=== PATIENT | male | born 1955 | race Caucasian/White ===

== ENCOUNTER 2021-07-17 16:43 | Inpatient (IN) ==
[2021-07-17] MEDS ORDERED: Insulin DETEMIR 100 UNIT/ML per UNIT SUBQ SCH (23:19)
[2021-07-17] MEDS ORDERED: *HR* Dextrose 50 % in Water (Syg) 50 ML SYRINGE IVP PRN (23:24)
[2021-07-17] MEDS ORDERED: Dextrose Gel 15 GM/37.5 ML TUBE PO PRN ×2 (23:24)
[2021-07-17] MEDS ORDERED: D5% in Water 1,000 ML IVC PRN (23:24)
[2021-07-17] MEDS: Doxycycline 100 MG CAPSULE PO SCH (23:52)
[2021-07-17] MEDS: Nystatin POWDER 30 GM BOTTLE TP SCH (23:52)
[2021-07-17] MEDS: Lactulose Oral Soln 20 GM/30 ML UDC PO SCH (23:52)
[2021-07-17] MEDS: levETIRAcetam 250 MG TABLET PO SCH (23:53)
[2021-07-18] MEDS: *HR* HYDROcodone/Acet 5/325 mg TABLET PO PRN ×2 (00:50→08:59)
[2021-07-18 05:57] LABS: VBG HCO3 33 mEq/L (21-27); VBG PCO2 59 mmHg (41-51); VBG PH 7.36 pH Units (7.32-7.42); VBG PO2 25 mmHg (25-50)
[2021-07-18 06:07] LABS: Basophils % 0.3 %; Eosinophils # 0.2 K/mcL (0.0-0.6); Eosinophils % 2.8 %; Hematocrit 28.4 % (37.5-50.1); Immature Granulocytes % 0.5 % (0-4); Lymphocytes # 0.8 K/mcL (0.6-4.6); Lymphocytes % 8.8 %; Mean Corpuscular HGB Conc 31.7 g/dL (31.6-35.5); Mean Corpuscular Hemoglobin 32.3 pg (28.0-33.3); Mean Corpuscular Volume 101.8 fL (83.0-100.0); Mean Platelet Volume 11.2 fL (9.4-12.4); Monocytes # 0.7 K/mcL (0.0-1.3); Monocytes % 7.6 %; Neutrophils # 6.9 K/mcL (1.6-8.9); Platelet Count 112 K/mcL (140-400); Red Blood Count 2.79 M/mcL (4.19-5.50); Red Cell Distribution Width 16.1 % (11.5-14.5); White Blood Count 8.6 K/mcL (4.3-11.1)
[2021-07-18 06:28] LABS: BUN/Creatinine Ratio 17 (6-26); Blood Urea Nitrogen 19 mg/dL (8-23); Calcium 8.3 mg/dL (8.6-10.3); Carbon Dioxide 34 mEq/L (23-29); Chloride 99 mEq/L (98-107); Glucose 256 mg/dL (70-105); Osmolality,Calculated 295 (280-300); Potassium 3.9 mEq/L (3.5-5.1); Sodium 137 mEq/L (136-145); eGFR For African Americans > 60 (> 60); eGFR For Non-African Americans > 60 (> 60)
[2021-07-18] MEDS: Insulin LISPRO 300 UNITS/3 ML VIAL SUBQ SCH ×4 (08:54→20:51)
[2021-07-18] MEDS: Aspirin Enteric Coated 81 MG Tablet PO SCH (08:55)
[2021-07-18] MEDS: Nicotine 14 MG PATCH.TD24 TD SCH (08:55)
[2021-07-18] MEDS: Spironolactone 25 MG TABLET PO SCH (08:55)
[2021-07-18] MEDS: Doxycycline 100 MG CAPSULE PO SCH ×2 (08:55→20:50)
[2021-07-18] MEDS: Cyanocobalamin (B-12) 1,000 MCG TABLET PO SCH (08:56)
[2021-07-18] MEDS: Furosemide 40 MG TABLET PO SCH (08:56)
[2021-07-18] MEDS: levETIRAcetam 250 MG TABLET PO SCH ×2 (08:56→20:50)
[2021-07-18] MEDS: Lactulose Oral Soln 20 GM/30 ML UDC PO SCH ×3 (08:56→20:50)
[2021-07-18] MEDS: Venlafaxine XR (24 HR) 75 MG CAP.ER.24H PO SCH (08:56)
[2021-07-18] MEDS: Nystatin POWDER 30 GM BOTTLE TP SCH ×2 (08:56→20:51)
[2021-07-18] MEDS ORDERED: D5% in Water 1,000 ML IVC PRN (16:00)
[2021-07-18] MEDS ORDERED: Dextrose Gel 15 GM/37.5 ML TUBE PO PRN ×2 (16:00)
[2021-07-18] MEDS ORDERED: *HR* Dextrose 50 % in Water (Syg) 50 ML SYRINGE IVP PRN (16:00)
[2021-07-18] MEDS: Insulin DETEMIR 100 UNIT/ML X5UNITS SUBQ SCH (20:51)
[2021-07-18] MEDS ORDERED: Insulin LISPRO 300 UNITS/3 ML VIAL SUBQ SCH (21:00)
[2021-07-19 07:37] LABS: Basophils % 0.6 %; Eosinophils # 0.2 K/mcL (0.0-0.6); Eosinophils % 2.7 %; Hematocrit 29.4 % (37.5-50.1); Hemoglobin 9.5 g/dL (12.9-16.9); Immature Granulocytes % 0.5 % (0-4); Lymphocytes # 0.8 K/mcL (0.6-4.6); Lymphocytes % 12.3 %; Mean Corpuscular HGB Conc 32.3 g/dL (31.6-35.5); Mean Corpuscular Hemoglobin 32.2 pg (28.0-33.3); Mean Corpuscular Volume 99.7 fL (83.0-100.0); Mean Platelet Volume 11.7 fL (9.4-12.4); Monocytes # 0.9 K/mcL (0.0-1.3); Monocytes % 13.1 %; Neutrophils # 4.7 K/mcL (1.6-8.9); Platelet Count 115 K/mcL (140-400); Red Blood Count 2.95 M/mcL (4.19-5.50); Red Cell Distribution Width 16.6 % (11.5-14.5); Segmented Neutrophils % 70.8 %; White Blood Count 6.6 K/mcL (4.3-11.1)
[2021-07-19 07:51] LABS: INR 1.5; Prothrombin Time 17.1 Seconds (9.4-12.1)
[2021-07-19 08:02] LABS: Alanine Aminotransferase 9 Units/L (7-52); Albumin 2.6 g/dL (3.5-5.7); Albumin/Globulin Ratio 0.7 (1.1-2.2); Alkaline Phosphatase 147 Units/L (34-104); Aspartate Amino Transferase 27 Units/L (13-39); BUN/Creatinine Ratio 18 (6-26); Bilirubin,Total 2.4 mg/dL (0.3-1.0); Blood Urea Nitrogen 21 mg/dL (8-23); Calcium 8.3 mg/dL (8.6-10.3); Carbon Dioxide 32 mEq/L (23-29); Chloride 100 mEq/L (98-107); Globulin 3.8 g/dL (2.4-3.5); Glucose 174 mg/dL (70-105); Osmolality,Calculated 293 (280-300); Potassium 3.6 mEq/L (3.5-5.1); Sodium 138 mEq/L (136-145); Total Protein 6.4 g/dL (6.4-8.9); eGFR For African Americans > 60 (> 60); eGFR For Non-African Americans > 60 (> 60)
[2021-07-19] MEDS: *HR* HYDROcodone/Acet 5/325 mg TABLET PO PRN (09:30)
[2021-07-19] MEDS: Venlafaxine XR (24 HR) 75 MG CAP.ER.24H PO SCH (09:30)
[2021-07-19] MEDS: levETIRAcetam 250 MG TABLET PO SCH ×2 (09:30→21:03)
[2021-07-19] MEDS: Cyanocobalamin (B-12) 1,000 MCG TABLET PO SCH (09:31)
[2021-07-19] MEDS: Doxycycline 100 MG CAPSULE PO SCH ×2 (09:31→21:03)
[2021-07-19] MEDS: Aspirin Enteric Coated 81 MG Tablet PO SCH (09:31)
[2021-07-19] MEDS: Furosemide 40 MG TABLET PO SCH (09:31)
[2021-07-19] MEDS: Spironolactone 25 MG TABLET PO SCH (09:31)
[2021-07-19] MEDS: Nicotine 14 MG PATCH.TD24 TD SCH (09:32)
[2021-07-19] MEDS: Lactulose Oral Soln 20 GM/30 ML UDC PO SCH ×3 (09:32→21:03)
[2021-07-19] MEDS: Nystatin POWDER 30 GM BOTTLE TP SCH ×2 (09:32→21:16)
[2021-07-19] MEDS: Insulin LISPRO 300 UNITS/3 ML VIAL SUBQ SCH ×4 (09:36→21:18)
[2021-07-19] MEDS ORDERED: 0.9 % Sodium Chloride 250 ML IVC SCH (12:15)
[2021-07-19] MEDS: Insulin DETEMIR 100 UNIT/ML X5UNITS SUBQ SCH (21:18)
[2021-07-19] MEDS ORDERED: Ondansetron 4 MG/2 ML VIAL IVP PRN (22:29)
[2021-07-20] MEDS: Insulin LISPRO 300 UNITS/3 ML VIAL SUBQ SCH ×4 (09:05→20:35)
[2021-07-20] MEDS: Cyanocobalamin (B-12) 1,000 MCG TABLET PO SCH (10:18)
[2021-07-20] MEDS: Furosemide 40 MG TABLET PO SCH (10:18)
[2021-07-20] MEDS: Venlafaxine XR (24 HR) 75 MG CAP.ER.24H PO SCH (10:18)
[2021-07-20] MEDS: levETIRAcetam 250 MG TABLET PO SCH ×2 (10:18→20:31)
[2021-07-20] MEDS: Spironolactone 25 MG TABLET PO SCH (10:18)
[2021-07-20] MEDS: Aspirin Enteric Coated 81 MG Tablet PO SCH (10:18)
[2021-07-20] MEDS: Doxycycline 100 MG CAPSULE PO SCH ×2 (10:18→20:31)
[2021-07-20] MEDS: Lactulose Oral Soln 20 GM/30 ML UDC PO SCH ×3 (10:19→20:31)
[2021-07-20] MEDS: Nicotine 14 MG PATCH.TD24 TD SCH (10:19)
[2021-07-20] MEDS: Nystatin POWDER 30 GM BOTTLE TP SCH ×2 (11:44→20:37)
[2021-07-20] MEDS: Insulin DETEMIR 100 UNIT/ML X5UNITS SUBQ SCH (20:42)
[2021-07-21] MEDS: *HR* HYDROcodone/Acet 5/325 mg TABLET PO PRN ×2 (01:42→15:17)
[2021-07-21] MEDS: Insulin LISPRO 300 UNITS/3 ML VIAL SUBQ SCH ×4 (07:33→20:59)
[2021-07-21] MEDS: Lactulose Oral Soln 20 GM/30 ML UDC PO SCH ×3 (07:34→20:59)
[2021-07-21] MEDS: Aspirin Enteric Coated 81 MG Tablet PO SCH (07:34)
[2021-07-21] MEDS: Doxycycline 100 MG CAPSULE PO SCH ×2 (07:34→20:58)
[2021-07-21] MEDS: Furosemide 40 MG TABLET PO SCH (07:34)
[2021-07-21] MEDS: Venlafaxine XR (24 HR) 75 MG CAP.ER.24H PO SCH (07:34)
[2021-07-21] MEDS: Spironolactone 25 MG TABLET PO SCH (07:34)
[2021-07-21] MEDS: Nicotine 14 MG PATCH.TD24 TD SCH (07:34)
[2021-07-21] MEDS: Cyanocobalamin (B-12) 1,000 MCG TABLET PO SCH (07:34)
[2021-07-21] MEDS: levETIRAcetam 250 MG TABLET PO SCH ×2 (07:34→20:58)
[2021-07-21] MEDS: Nystatin POWDER 30 GM BOTTLE TP SCH ×2 (07:35→21:11)
[2021-07-21] MEDS: *HR* LORazepam 0.5 MG TABLET PO PRN (20:59)
[2021-07-21] MEDS: Insulin DETEMIR 100 UNIT/ML X5UNITS SUBQ SCH (21:01)
[2021-07-22] MEDS: levETIRAcetam 250 MG TABLET PO SCH ×2 (08:57→21:56)
[2021-07-22] MEDS: Doxycycline 100 MG CAPSULE PO SCH ×2 (08:57→21:56)
[2021-07-22] MEDS: Lactulose Oral Soln 20 GM/30 ML UDC PO SCH ×3 (08:57→21:56)
[2021-07-22] MEDS: Cyanocobalamin (B-12) 1,000 MCG TABLET PO SCH (08:58)
[2021-07-22] MEDS: Spironolactone 25 MG TABLET PO SCH (08:58)
[2021-07-22] MEDS: Nicotine 14 MG PATCH.TD24 TD SCH (08:58)
[2021-07-22] MEDS: Venlafaxine XR (24 HR) 75 MG CAP.ER.24H PO SCH (08:58)
[2021-07-22] MEDS: Furosemide 40 MG TABLET PO SCH (08:58)
[2021-07-22] MEDS: Aspirin Enteric Coated 81 MG Tablet PO SCH (08:58)
[2021-07-22] MEDS: Nystatin POWDER 30 GM BOTTLE TP SCH ×2 (08:59→21:57)
[2021-07-22] MEDS: Insulin LISPRO 300 UNITS/3 ML VIAL SUBQ SCH ×4 (08:59→21:53)
[2021-07-22] MEDS: *HR* HYDROcodone/Acet 5/325 mg TABLET PO PRN (17:20)
[2021-07-22] MEDS: Insulin DETEMIR 100 UNIT/ML X5UNITS SUBQ SCH (21:57)
[2021-07-23] MEDS: Insulin LISPRO 300 UNITS/3 ML VIAL SUBQ SCH ×4 (08:21→20:51)
[2021-07-23] MEDS: Nicotine 14 MG PATCH.TD24 TD SCH (09:18)
[2021-07-23] MEDS: Nystatin POWDER 30 GM BOTTLE TP SCH ×2 (10:01→20:53)
[2021-07-23] MEDS: *HR* LORazepam 0.5 MG TABLET PO PRN (10:11)
[2021-07-23] MEDS: Venlafaxine XR (24 HR) 75 MG CAP.ER.24H PO SCH (10:11)
[2021-07-23] MEDS: Doxycycline 100 MG CAPSULE PO SCH ×2 (10:11→20:50)
[2021-07-23] MEDS: Lactulose Oral Soln 20 GM/30 ML UDC PO SCH ×3 (10:11→20:51)
[2021-07-23] MEDS: *HR* HYDROcodone/Acet 5/325 mg TABLET PO PRN (10:12)
[2021-07-23] MEDS: Cyanocobalamin (B-12) 1,000 MCG TABLET PO SCH (10:12)
[2021-07-23] MEDS: Aspirin Enteric Coated 81 MG Tablet PO SCH (10:12)
[2021-07-23] MEDS: Spironolactone 25 MG TABLET PO SCH (10:12)
[2021-07-23] MEDS: Furosemide 40 MG TABLET PO SCH (10:13)
[2021-07-23] MEDS: levETIRAcetam 250 MG TABLET PO SCH ×2 (10:13→20:50)
[2021-07-23] MEDS: Insulin DETEMIR 100 UNIT/ML X5UNITS SUBQ SCH (21:04)
[2021-07-24] MEDS: *HR* HYDROcodone/Acet 5/325 mg TABLET PO PRN ×2 (00:47→09:07)
[2021-07-24 07:38] LABS: Hematocrit 27.2 % (37.5-50.1); Mean Corpuscular HGB Conc 33.1 g/dL (31.6-35.5); Mean Corpuscular Hemoglobin 33.1 pg (28.0-33.3); Mean Platelet Volume 12.1 fL (9.4-12.4); Platelet Count 130 K/mcL (140-400); Red Blood Count 2.72 M/mcL (4.19-5.50); Red Cell Distribution Width 17.5 % (11.5-14.5); White Blood Count 6.3 K/mcL (4.3-11.1)
[2021-07-24 07:54] LABS: Alanine Aminotransferase 11 Units/L (7-52); Albumin 2.3 g/dL (3.5-5.7); Albumin/Globulin Ratio 0.5 (1.1-2.2); Alkaline Phosphatase 197 Units/L (34-104); Aspartate Amino Transferase 32 Units/L (13-39); BUN/Creatinine Ratio 16 (6-26); Bilirubin,Total 2.2 mg/dL (0.3-1.0); Blood Urea Nitrogen 19 mg/dL (8-23); Calcium 8.2 mg/dL (8.6-10.3); Carbon Dioxide 32 mEq/L (23-29); Chloride 101 mEq/L (98-107); Globulin 4.5 g/dL (2.4-3.5); Glucose 130 mg/dL (70-105); Osmolality,Calculated 288 (280-300); Potassium 4.1 mEq/L (3.5-5.1); Sodium 137 mEq/L (136-145); Total Protein 6.8 g/dL (6.4-8.9); eGFR For African Americans > 60 (> 60); eGFR For Non-African Americans > 60 (> 60)
[2021-07-24] MEDS: Insulin LISPRO 300 UNITS/3 ML VIAL SUBQ SCH ×4 (08:34→21:14)
[2021-07-24] MEDS: Lactulose Oral Soln 20 GM/30 ML UDC PO SCH ×3 (09:06→21:10)
[2021-07-24] MEDS: Cyanocobalamin (B-12) 1,000 MCG TABLET PO SCH (09:06)
[2021-07-24] MEDS: Spironolactone 25 MG TABLET PO SCH (09:06)
[2021-07-24] MEDS: levETIRAcetam 250 MG TABLET PO SCH ×2 (09:06→21:10)
[2021-07-24] MEDS: *HR* LORazepam 0.5 MG TABLET PO PRN (09:07)
[2021-07-24] MEDS: Furosemide 40 MG TABLET PO SCH (09:07)
[2021-07-24] MEDS: Venlafaxine XR (24 HR) 75 MG CAP.ER.24H PO SCH (09:07)
[2021-07-24] MEDS: Aspirin Enteric Coated 81 MG Tablet PO SCH (09:07)
[2021-07-24] MEDS: Nystatin POWDER 30 GM BOTTLE TP SCH ×2 (09:45→21:16)
[2021-07-24] MEDS: Insulin DETEMIR 100 UNIT/ML X5UNITS SUBQ SCH (21:28)
[2021-07-25] MEDS: Venlafaxine XR (24 HR) 75 MG CAP.ER.24H PO SCH (09:13)
[2021-07-25] MEDS: Cyanocobalamin (B-12) 1,000 MCG TABLET PO SCH (09:13)
[2021-07-25] MEDS: levETIRAcetam 250 MG TABLET PO SCH ×2 (09:13→20:41)
[2021-07-25] MEDS: Spironolactone 25 MG TABLET PO SCH (09:13)
[2021-07-25] MEDS: Aspirin Enteric Coated 81 MG Tablet PO SCH (09:14)
[2021-07-25] MEDS: Lactulose Oral Soln 20 GM/30 ML UDC PO SCH ×3 (09:14→20:41)
[2021-07-25] MEDS: Furosemide 40 MG TABLET PO SCH (09:14)
[2021-07-25] MEDS: Nystatin POWDER 30 GM BOTTLE TP SCH ×2 (09:16→20:52)
[2021-07-25] MEDS: Insulin LISPRO 300 UNITS/3 ML VIAL SUBQ SCH ×4 (09:16→20:49)
[2021-07-25 10:00] LABS: BUN/Creatinine Ratio 17 (6-26); Blood Urea Nitrogen 18 mg/dL (8-23); Calcium 8.6 mg/dL (8.6-10.3); Carbon Dioxide 31 mEq/L (23-29); Chloride 102 mEq/L (98-107); Glucose 99 mg/dL (70-105); Osmolality,Calculated 288 (280-300); Sodium 138 mEq/L (136-145); eGFR For African Americans > 60 (> 60); eGFR For Non-African Americans > 60 (> 60)
[2021-07-25] MEDS: Insulin DETEMIR 100 UNIT/ML X5UNITS SUBQ SCH (20:41)
[2021-07-25] MEDS: *HR* LORazepam 0.5 MG TABLET PO PRN (23:32)
[2021-07-26] MEDS: *HR* HYDROcodone/Acet 5/325 mg TABLET PO PRN (02:21)
[2021-07-26 09:23] LABS: Basophils # 0.1 K/mcL (0.0-0.2); Basophils % 0.7 %; Eosinophils # 0.1 K/mcL (0.0-0.6); Eosinophils % 1.7 %; Hematocrit 31.3 % (37.5-50.1); Hemoglobin 9.9 g/dL (12.9-16.9); Immature Granulocytes % 0.5 % (0-4); Lymphocytes # 1.1 K/mcL (0.6-4.6); Lymphocytes % 14.5 %; Mean Corpuscular HGB Conc 31.6 g/dL (31.6-35.5); Mean Corpuscular Hemoglobin 32.9 pg (28.0-33.3); Mean Platelet Volume 12.3 fL (9.4-12.4); Monocytes # 0.8 K/mcL (0.0-1.3); Monocytes % 10.5 %; Neutrophils # 5.4 K/mcL (1.6-8.9); Red Blood Count 3.01 M/mcL (4.19-5.50); Red Cell Distribution Width 17.2 % (11.5-14.5); Segmented Neutrophils % 72.1 %; White Blood Count 7.5 K/mcL (4.3-11.1)
[2021-07-26 09:24] LABS: Platelet Count 97 K/mcL (140-400)
[2021-07-26 09:32] LABS: BUN/Creatinine Ratio 15 (6-26); Blood Urea Nitrogen 19 mg/dL (8-23); Calcium 8.5 mg/dL (8.6-10.3); Carbon Dioxide 25 mEq/L (23-29); Chloride 101 mEq/L (98-107); Glucose 179 mg/dL (70-105); Osmolality,Calculated 285 (280-300); Sodium 134 mEq/L (136-145); eGFR For African Americans > 60 (> 60); eGFR For Non-African Americans 58 (> 60)
[2021-07-26] MEDS: Venlafaxine XR (24 HR) 75 MG CAP.ER.24H PO SCH ×2 (11:51→14:54)
[2021-07-26] MEDS: levETIRAcetam 250 MG TABLET PO SCH ×3 (11:52→21:14)
[2021-07-26] MEDS: Spironolactone 25 MG TABLET PO SCH ×2 (11:52→14:54)
[2021-07-26] MEDS: Furosemide 40 MG TABLET PO SCH ×2 (11:52→15:13)
[2021-07-26] MEDS: Aspirin Enteric Coated 81 MG Tablet PO SCH ×2 (11:52→14:54)
[2021-07-26] MEDS: Lactulose Oral Soln 20 GM/30 ML UDC PO SCH ×5 (11:54→21:14)
[2021-07-26] MEDS: Nystatin POWDER 30 GM BOTTLE TP SCH ×3 (11:54→21:14)
[2021-07-26] MEDS: Cyanocobalamin (B-12) 1,000 MCG TABLET PO SCH (12:01)
[2021-07-26] MEDS: Insulin LISPRO 300 UNITS/3 ML VIAL SUBQ SCH ×5 (12:02→21:14)
[2021-07-26] MEDS: *HR* LORazepam 0.5 MG TABLET PO PRN (20:43)
[2021-07-26] MEDS: Insulin DETEMIR 100 UNIT/ML X5UNITS SUBQ SCH (21:14)
[2021-07-27] MEDS: Lactulose Oral Soln 20 GM/30 ML UDC PO SCH ×4 (07:39→17:39)
[2021-07-27] MEDS: Spironolactone 25 MG TABLET PO SCH (07:40)
[2021-07-27] MEDS: Aspirin Enteric Coated 81 MG Tablet PO SCH (07:41)
[2021-07-27] MEDS: Venlafaxine XR (24 HR) 75 MG CAP.ER.24H PO SCH (07:42)
[2021-07-27] MEDS: Cyanocobalamin (B-12) 1,000 MCG TABLET PO SCH (07:42)
[2021-07-27] MEDS: levETIRAcetam 250 MG TABLET PO SCH ×2 (07:43→20:47)
[2021-07-27] MEDS: Furosemide 40 MG TABLET PO SCH (07:44)
[2021-07-27] MEDS: Nystatin POWDER 30 GM BOTTLE TP SCH ×2 (07:45→20:48)
[2021-07-27] MEDS: Insulin LISPRO 300 UNITS/3 ML VIAL SUBQ SCH ×4 (07:50→20:58)
[2021-07-27 07:57] LABS: BUN/Creatinine Ratio 16 (6-26); Blood Urea Nitrogen 17 mg/dL (8-23); Calcium 8.1 mg/dL (8.6-10.3); Carbon Dioxide 28 mEq/L (23-29); Chloride 102 mEq/L (98-107); Glucose 167 mg/dL (70-105); Osmolality,Calculated 289 (280-300); Sodium 137 mEq/L (136-145); eGFR For African Americans > 60 (> 60); eGFR For Non-African Americans > 60 (> 60)
[2021-07-27] MEDS: *HR* HYDROcodone/Acet 5/325 mg TABLET PO PRN ×2 (14:08→20:47)
[2021-07-27] MEDS: *HR* LORazepam 0.5 MG TABLET PO PRN (20:46)
[2021-07-27] MEDS: Insulin DETEMIR 100 UNIT/ML X5UNITS SUBQ SCH (20:54)
[2021-07-28] MEDS: Lactulose Oral Soln 20 GM/30 ML UDC PO SCH ×4 (02:28→16:33)
[2021-07-28] MEDS: *HR* HYDROcodone/Acet 5/325 mg TABLET PO PRN ×2 (04:34→21:06)
[2021-07-28] MEDS: *HR* LORazepam 0.5 MG TABLET PO PRN (04:35)
[2021-07-28] MEDS: Cyanocobalamin (B-12) 1,000 MCG TABLET PO SCH (08:34)
[2021-07-28] MEDS: Aspirin Enteric Coated 81 MG Tablet PO SCH (08:34)
[2021-07-28] MEDS: Spironolactone 25 MG TABLET PO SCH (08:34)
[2021-07-28] MEDS: Furosemide 40 MG TABLET PO SCH (08:34)
[2021-07-28] MEDS: Venlafaxine XR (24 HR) 75 MG CAP.ER.24H PO SCH (08:34)
[2021-07-28] MEDS: Insulin LISPRO 300 UNITS/3 ML VIAL SUBQ SCH ×4 (08:36→21:01)
[2021-07-28] MEDS: Nystatin POWDER 30 GM BOTTLE TP SCH ×2 (08:38→21:05)
[2021-07-28] MEDS: levETIRAcetam 250 MG TABLET PO SCH ×2 (08:45→21:04)
[2021-07-28] MEDS: Insulin DETEMIR 100 UNIT/ML X5UNITS SUBQ SCH (21:04)
[2021-07-29] MEDS: Lactulose Oral Soln 20 GM/30 ML UDC PO SCH ×5 (02:50→23:01)
[2021-07-29] MEDS: Insulin LISPRO 300 UNITS/3 ML VIAL SUBQ SCH ×4 (07:54→20:09)
[2021-07-29] MEDS: Spironolactone 25 MG TABLET PO SCH (08:40)
[2021-07-29] MEDS: Aspirin Enteric Coated 81 MG Tablet PO SCH (08:40)
[2021-07-29] MEDS: Furosemide 40 MG TABLET PO SCH (08:40)
[2021-07-29] MEDS: levETIRAcetam 250 MG TABLET PO SCH ×2 (08:40→20:09)
[2021-07-29] MEDS: Venlafaxine XR (24 HR) 75 MG CAP.ER.24H PO SCH (08:41)
[2021-07-29] MEDS: Cyanocobalamin (B-12) 1,000 MCG TABLET PO SCH (08:41)
[2021-07-29] MEDS: Nystatin POWDER 30 GM BOTTLE TP SCH ×2 (08:44→20:10)
[2021-07-29 12:47] LABS: Basophils # 0.1 K/mcL (0.0-0.2); Basophils % 0.7 %; Eosinophils # 0.1 K/mcL (0.0-0.6); Eosinophils % 1.8 %; Immature Granulocytes % 0.3 % (0-4); Lymphocytes # 0.8 K/mcL (0.6-4.6); Lymphocytes % 10.9 %; Mean Corpuscular HGB Conc 32.3 g/dL (31.6-35.5); Mean Corpuscular Hemoglobin 33.1 pg (28.0-33.3); Mean Corpuscular Volume 102.6 fL (83.0-100.0); Mean Platelet Volume 12.4 fL (9.4-12.4); Monocytes # 0.8 K/mcL (0.0-1.3); Monocytes % 10.8 %; Neutrophils # 5.8 K/mcL (1.6-8.9); Platelet Count 130 K/mcL (140-400); Red Blood Count 3.02 M/mcL (4.19-5.50); Red Cell Distribution Width 16.7 % (11.5-14.5); Segmented Neutrophils % 75.5 %; White Blood Count 7.6 K/mcL (4.3-11.1)
[2021-07-29 12:59] LABS: BUN/Creatinine Ratio 13 (6-26); Blood Urea Nitrogen 15 mg/dL (8-23); Calcium 8.1 mg/dL (8.6-10.3); Carbon Dioxide 31 mEq/L (23-29); Chloride 104 mEq/L (98-107); Glucose 206 mg/dL (70-105); Osmolality,Calculated 299 (280-300); Potassium 3.9 mEq/L (3.5-5.1); Sodium 141 mEq/L (136-145); eGFR For African Americans > 60 (> 60); eGFR For Non-African Americans > 60 (> 60)
[2021-07-29] MEDS: *HR* HYDROcodone/Acet 5/325 mg TABLET PO PRN ×2 (14:31→23:55)
[2021-07-29] MEDS: Insulin DETEMIR 100 UNIT/ML X5UNITS SUBQ SCH (20:09)
[2021-07-29] MEDS: *HR* LORazepam 0.5 MG TABLET PO PRN (23:55)
[2021-07-30] MEDS: Lactulose Oral Soln 20 GM/30 ML UDC PO SCH ×3 (05:13→20:36)
[2021-07-30] MEDS: *HR* HYDROcodone/Acet 5/325 mg TABLET PO PRN (06:09)
[2021-07-30] MEDS: Furosemide 40 MG TABLET PO SCH (07:35)
[2021-07-30] MEDS: Spironolactone 25 MG TABLET PO SCH (07:35)
[2021-07-30] MEDS: Aspirin Enteric Coated 81 MG Tablet PO SCH (07:35)
[2021-07-30] MEDS: Venlafaxine XR (24 HR) 75 MG CAP.ER.24H PO SCH (07:35)
[2021-07-30] MEDS: Insulin LISPRO 300 UNITS/3 ML VIAL SUBQ SCH ×4 (07:35→20:36)
[2021-07-30] MEDS: Cyanocobalamin (B-12) 1,000 MCG TABLET PO SCH (07:35)
[2021-07-30] MEDS: levETIRAcetam 250 MG TABLET PO SCH ×2 (07:35→20:37)
[2021-07-30] MEDS: Nystatin POWDER 30 GM BOTTLE TP SCH ×2 (11:43→20:38)
[2021-07-30] MEDS: Insulin DETEMIR 100 UNIT/ML X5UNITS SUBQ SCH (20:37)
[2021-07-31] MEDS: *HR* LORazepam 0.5 MG TABLET PO PRN ×2 (00:07→20:24)
[2021-07-31 07:05] LABS: INR 1.4; Prothrombin Time 15.5 Seconds (9.4-12.1)
[2021-07-31 07:18] LABS: BUN/Creatinine Ratio 13 (6-26); Blood Urea Nitrogen 16 mg/dL (8-23); Calcium 7.9 mg/dL (8.6-10.3); Carbon Dioxide 31 mEq/L (23-29); Chloride 103 mEq/L (98-107); Glucose 182 mg/dL (70-105); Osmolality,Calculated 294 (280-300); Potassium 3.8 mEq/L (3.5-5.1); Sodium 139 mEq/L (136-145); eGFR For African Americans > 60 (> 60); eGFR For Non-African Americans > 60 (> 60)
[2021-07-31] MEDS: levETIRAcetam 250 MG TABLET PO SCH ×2 (08:53→20:24)
[2021-07-31] MEDS: Lactulose Oral Soln 20 GM/30 ML UDC PO SCH ×3 (08:53→20:23)
[2021-07-31] MEDS: Cyanocobalamin (B-12) 1,000 MCG TABLET PO SCH (08:54)
[2021-07-31] MEDS: Spironolactone 25 MG TABLET PO SCH (08:54)
[2021-07-31] MEDS: Insulin LISPRO 300 UNITS/3 ML VIAL SUBQ SCH ×4 (08:54→20:24)
[2021-07-31] MEDS: Furosemide 40 MG TABLET PO SCH (08:54)
[2021-07-31] MEDS: Venlafaxine XR (24 HR) 75 MG CAP.ER.24H PO SCH (08:54)
[2021-07-31] MEDS: Aspirin Enteric Coated 81 MG Tablet PO SCH (08:54)
[2021-07-31] MEDS: Nystatin POWDER 30 GM BOTTLE TP SCH ×2 (09:09→20:25)
[2021-07-31] MEDS: *HR* HYDROcodone/Acet 5/325 mg TABLET PO PRN (20:23)
[2021-07-31] MEDS: Insulin DETEMIR 100 UNIT/ML X5UNITS SUBQ SCH (20:25)
[2021-08-01] MEDS: levETIRAcetam 250 MG TABLET PO SCH ×4 (00:11→19:48)
[2021-08-01] MEDS: *HR* HYDROcodone/Acet 5/325 mg TABLET PO PRN ×3 (03:32→19:48)
[2021-08-01] MEDS: *HR* LORazepam 0.5 MG TABLET PO PRN ×4 (03:33→19:48)
[2021-08-01] MEDS: Lactulose Oral Soln 20 GM/30 ML UDC PO SCH ×3 (08:30→19:47)
[2021-08-01] MEDS: Venlafaxine XR (24 HR) 75 MG CAP.ER.24H PO SCH (08:31)
[2021-08-01] MEDS: Spironolactone 25 MG TABLET PO SCH (08:31)
[2021-08-01] MEDS: Cyanocobalamin (B-12) 1,000 MCG TABLET PO SCH (08:31)
[2021-08-01] MEDS: Furosemide 40 MG TABLET PO SCH (08:32)
[2021-08-01] MEDS: Insulin LISPRO 300 UNITS/3 ML VIAL SUBQ SCH ×4 (08:32→19:56)
[2021-08-01] MEDS: Aspirin Enteric Coated 81 MG Tablet PO SCH (08:32)
[2021-08-01] MEDS: Nystatin POWDER 30 GM BOTTLE TP SCH ×2 (08:32→19:56)
[2021-08-01] MEDS: Insulin DETEMIR 100 UNIT/ML X5UNITS SUBQ SCH (19:48)
[2021-08-02] MEDS: QUEtiapine Fumarate 25 MG TABLET PO PRN (00:49)
[2021-08-02] MEDS: Insulin LISPRO 300 UNITS/3 ML VIAL SUBQ SCH ×4 (08:12→22:23)
[2021-08-02] MEDS: Nystatin POWDER 30 GM BOTTLE TP SCH ×2 (08:15→22:23)
[2021-08-02] MEDS: levETIRAcetam 250 MG TABLET PO SCH ×2 (10:35→22:23)
[2021-08-02] MEDS: Spironolactone 25 MG TABLET PO SCH (10:35)
[2021-08-02] MEDS: Venlafaxine XR (24 HR) 75 MG CAP.ER.24H PO SCH (10:35)
[2021-08-02] MEDS: Aspirin Enteric Coated 81 MG Tablet PO SCH (10:35)
[2021-08-02] MEDS: Furosemide 40 MG TABLET PO SCH (10:36)
[2021-08-02] MEDS: Cyanocobalamin (B-12) 1,000 MCG TABLET PO SCH (10:36)
[2021-08-02] MEDS: Lactulose Oral Soln 20 GM/30 ML UDC PO SCH ×3 (10:36→22:23)
[2021-08-02] MEDS: Insulin DETEMIR 100 UNIT/ML X5UNITS SUBQ SCH (22:23)
[2021-08-03] MEDS: Insulin LISPRO 300 UNITS/3 ML VIAL SUBQ SCH ×4 (08:53→23:25)
[2021-08-03] MEDS: Furosemide 40 MG TABLET PO SCH (09:15)
[2021-08-03] MEDS: Spironolactone 25 MG TABLET PO SCH (09:15)
[2021-08-03] MEDS: levETIRAcetam 250 MG TABLET PO SCH ×2 (09:15→19:57)
[2021-08-03] MEDS: Aspirin Enteric Coated 81 MG Tablet PO SCH (09:15)
[2021-08-03] MEDS: Lactulose Oral Soln 20 GM/30 ML UDC PO SCH ×3 (09:16→19:57)
[2021-08-03] MEDS: Cyanocobalamin (B-12) 1,000 MCG TABLET PO SCH (09:16)
[2021-08-03] MEDS: Venlafaxine XR (24 HR) 75 MG CAP.ER.24H PO SCH (09:16)
[2021-08-03] MEDS: Nystatin POWDER 30 GM BOTTLE TP SCH ×2 (09:25→23:24)
[2021-08-03] MEDS: QUEtiapine Fumarate 25 MG TABLET PO PRN (19:57)
[2021-08-03] MEDS: Insulin DETEMIR 100 UNIT/ML X5UNITS SUBQ SCH (19:57)
[2021-08-04] MEDS: Insulin LISPRO 300 UNITS/3 ML VIAL SUBQ SCH ×5 (07:24→22:13)
[2021-08-04] MEDS: Spironolactone 25 MG TABLET PO SCH (10:44)
[2021-08-04] MEDS: Cyanocobalamin (B-12) 1,000 MCG TABLET PO SCH (10:44)
[2021-08-04] MEDS: levETIRAcetam 250 MG TABLET PO SCH ×2 (10:44→22:11)
[2021-08-04] MEDS: Venlafaxine XR (24 HR) 75 MG CAP.ER.24H PO SCH (10:44)
[2021-08-04] MEDS: Lactulose Oral Soln 20 GM/30 ML UDC PO SCH ×3 (10:44→22:11)
[2021-08-04] MEDS: Aspirin Enteric Coated 81 MG Tablet PO SCH (10:45)
[2021-08-04] MEDS: Furosemide 40 MG TABLET PO SCH (10:45)
[2021-08-04] MEDS: *HR* LORazepam 0.5 MG TABLET PO PRN ×2 (10:45→22:12)
[2021-08-04] MEDS: Nystatin POWDER 30 GM BOTTLE TP SCH (10:45)
[2021-08-04] MEDS: QUEtiapine Fumarate 25 MG TABLET PO PRN (22:12)
[2021-08-04] MEDS: Insulin DETEMIR 100 UNIT/ML X5UNITS SUBQ SCH (22:12)
[2021-08-05] MEDS: Nystatin POWDER 30 GM BOTTLE TP SCH ×3 (01:48→21:32)
[2021-08-05] MEDS: levETIRAcetam 250 MG TABLET PO SCH ×2 (07:50→21:31)
[2021-08-05] MEDS: Aspirin Enteric Coated 81 MG Tablet PO SCH (07:50)
[2021-08-05] MEDS: Spironolactone 25 MG TABLET PO SCH (07:50)
[2021-08-05] MEDS: Furosemide 40 MG TABLET PO SCH (07:50)
[2021-08-05] MEDS: *HR* LORazepam 0.5 MG TABLET PO PRN ×2 (07:50→21:30)
[2021-08-05] MEDS: Lactulose Oral Soln 20 GM/30 ML UDC PO SCH ×3 (07:51→21:30)
[2021-08-05] MEDS: *HR* HYDROcodone/Acet 5/325 mg TABLET PO PRN (07:51)
[2021-08-05] MEDS: Venlafaxine XR (24 HR) 75 MG CAP.ER.24H PO SCH (07:51)
[2021-08-05] MEDS: Cyanocobalamin (B-12) 1,000 MCG TABLET PO SCH (07:51)
[2021-08-05] MEDS: Insulin LISPRO 300 UNITS/3 ML VIAL SUBQ SCH ×4 (07:52→21:31)
[2021-08-05] MEDS ORDERED: Haloperidol Lactate 5 MG/ML VIAL IM ONE (20:04)
[2021-08-05] MEDS: QUEtiapine Fumarate 25 MG TABLET PO PRN (21:30)
[2021-08-05] MEDS: Insulin DETEMIR 100 UNIT/ML X5UNITS SUBQ SCH (21:31)
[2021-08-06 08:30] LABS: Basophils % 0.6 %; Eosinophils # 0.2 K/mcL (0.0-0.6); Eosinophils % 3.2 %; Hemoglobin 8.7 g/dL (12.9-16.9); Immature Granulocytes % 0.3 % (0-4); Lymphocytes # 0.8 K/mcL (0.6-4.6); Lymphocytes % 11.6 %; Mean Corpuscular HGB Conc 32.2 g/dL (31.6-35.5); Mean Corpuscular Hemoglobin 33.2 pg (28.0-33.3); Mean Corpuscular Volume 103.1 fL (83.0-100.0); Mean Platelet Volume 11.7 fL (9.4-12.4); Monocytes # 0.8 K/mcL (0.0-1.3); Red Blood Count 2.62 M/mcL (4.19-5.50); Red Cell Distribution Width 15.3 % (11.5-14.5); Segmented Neutrophils % 73.3 %; White Blood Count 6.8 K/mcL (4.3-11.1)
[2021-08-06 08:31] LABS: Platelet Count 75 K/mcL (140-400)
[2021-08-06] MEDS: levETIRAcetam 250 MG TABLET PO SCH ×2 (08:42→20:05)
[2021-08-06] MEDS: Venlafaxine XR (24 HR) 75 MG CAP.ER.24H PO SCH (08:42)
[2021-08-06] MEDS: Furosemide 40 MG TABLET PO SCH (08:42)
[2021-08-06] MEDS: Spironolactone 25 MG TABLET PO SCH (08:42)
[2021-08-06] MEDS: Cyanocobalamin (B-12) 1,000 MCG TABLET PO SCH (08:42)
[2021-08-06] MEDS: Nystatin POWDER 30 GM BOTTLE TP SCH ×2 (08:42→20:16)
[2021-08-06] MEDS: Aspirin Enteric Coated 81 MG Tablet PO SCH (08:42)
[2021-08-06] MEDS: Lactulose Oral Soln 20 GM/30 ML UDC PO SCH ×3 (08:43→20:04)
[2021-08-06] MEDS: Insulin LISPRO 300 UNITS/3 ML VIAL SUBQ SCH ×4 (08:45→20:15)
[2021-08-06 08:47] LABS: Alanine Aminotransferase 11 Units/L (7-52); Albumin/Globulin Ratio 0.4 (1.1-2.2); Alkaline Phosphatase 161 Units/L (34-104); Aspartate Amino Transferase 25 Units/L (13-39); BUN/Creatinine Ratio 12 (6-26); Bilirubin,Total 1.4 mg/dL (0.3-1.0); Blood Urea Nitrogen 14 mg/dL (8-23); Calcium 7.6 mg/dL (8.6-10.3); Carbon Dioxide 30 mEq/L (23-29); Chloride 102 mEq/L (98-107); Globulin 4.8 g/dL (2.4-3.5); Glucose 154 mg/dL (70-105); Magnesium 1.9 mg/dL (1.6-2.6); Osmolality,Calculated 286 (280-300); Potassium 3.8 mEq/L (3.5-5.1); Sodium 136 mEq/L (136-145); Total Protein 6.8 g/dL (6.4-8.9); eGFR For African Americans > 60 (> 60); eGFR For Non-African Americans > 60 (> 60)
[2021-08-06] MEDS: *HR* LORazepam 0.5 MG TABLET PO PRN (20:05)
[2021-08-06] MEDS: Insulin DETEMIR 100 UNIT/ML X5UNITS SUBQ SCH (20:15)
[2021-08-06] MEDS: QUEtiapine Fumarate 25 MG TABLET PO PRN (22:53)
[2021-08-07] MEDS: *HR* HYDROcodone/Acet 5/325 mg TABLET PO PRN (03:23)
[2021-08-07] MEDS: *HR* LORazepam 0.5 MG TABLET PO PRN (03:23)
[2021-08-07 08:18] VITALS: BP 115/69; PULSE 83; RESP 19; TEMP 98.5; O2SAT 97
[2021-08-07] MEDS: Insulin LISPRO 300 UNITS/3 ML VIAL SUBQ SCH (09:24)
[2021-08-07] MEDS: Lactulose Oral Soln 20 GM/30 ML UDC PO SCH (09:25)
[2021-08-07] MEDS: Spironolactone 25 MG TABLET PO SCH (09:25)
[2021-08-07] MEDS: levETIRAcetam 250 MG TABLET PO SCH (09:25)
[2021-08-07] MEDS: Cyanocobalamin (B-12) 1,000 MCG TABLET PO SCH (09:26)
[2021-08-07] MEDS: Venlafaxine XR (24 HR) 75 MG CAP.ER.24H PO SCH (09:26)
[2021-08-07] MEDS: Aspirin Enteric Coated 81 MG Tablet PO SCH (09:26)
[2021-08-07] MEDS: Furosemide 40 MG TABLET PO SCH (09:26)
[2021-08-07] MEDS: Nystatin POWDER 30 GM BOTTLE TP SCH (09:27)
== END 2021-08-07 12:05 | disposition hospice, home (50) | DRG 441 ==
LOC: PREOBSVTOIN 16:45 → INPPIK 21:20
PROVIDERS: ADMIT Family Medicine; ATTEND Family Medicine